=== PATIENT | female | born 1965 | race Caucasian/White ===

== ENCOUNTER → 2018-06-29 | Outpatient (CLI) | payer BC ==
[~2018-06-29] MED LIST: CAR350 PO; CEP500 PO; DIAZ-1 PO; DULO60CA51 PO; LEVO50TA80 PO; LUBI24CA8 PO; OXYC-528 PO; PER PO; PRAV20TA65 PO; PREG25 PO; TOBROD OD; TRA50 PO; TRAZ50 PO
--- NOTE | 2018-06-30 15:16 | RADIOLOGY IMAGING REPORT ---
FACILITY: [facility] - [place] PATIENT NAME: JESUS HENRIQUEZ : [id number] MR: [id number] V: [id number] EXAM DATE: ORDERING PHYSICIAN: BRINA AVILA TECHNOLOGIST: Allie Knight PROCEDURE:BILATERAL DIAGNOSTIC DIGITAL MAMMOGRAM WITH CAD ASSISTED INTERPRETATION & 3D TOMOSYNTHESIS COMPARISON:Prior mammograms 02/09/17, 12/28/13, 02/22/12. INDICATIONS:palpable breast lump approximate 4 o'clock position of the Left breast FINDINGS: The breasts are heterogeneously dense which can obscure small masses. The parenchymal pattern has remained stable allowing for difference in mammographic technique & patient positioning. Today's Left breast Ultrasound was performed along the inferior aspect of the Left breast from the 9-3 o'clock position. Numerous breast cysts were demonstrated. In the 3, 4, 5 & 8 o'clock position which will be discussed in Today's Left breast Ultrasound report. DIAGNOSTIC CATEGORY 2--BENIGN FINDING. RECOMMENDATIONS: ROUTINE MAMMOGRAM AND CLINICAL EVALUATION. IMPRESSION: BIRADS 2: Benign finding. There are numerous Left breast cysts which likely account for patient's palpable findings as described above. Dictated by: Piedad Santana M.D. on 06/29/2018 at 17:00 Transcribed by: OTILIA on 06/30/2018 at 8:35 Approved by: Piedad Santana M.D. on 06/30/2018 at 15:15 [facility]
--- NOTE | 2018-07-01 17:11 | RADIOLOGY IMAGING REPORT ---
FACILITY: [facility] PATIENT NAME: JESUS HENRIQUEZ : [id number] MR: [id number] V: [id number] EXAM DATE: ORDERING PHYSICIAN: BRINA AVILA TECHNOLOGIST: Elayne Garcia RDMS(ABD,OBGYN,BR),RVT PROCEDURE:US LEFT BREAST COMPLETE COMPARISON:None. INDICATIONS:PALPABLE LT BREAST LUMP APPROXIMATE 4 O'CLOCK POSITION FINDINGS: The inferior portion of the Left breast was imaged from the 9-3 o'clock position. There are numerous cysts in the Left breast. 1 in the 3 o'clock position measures 9mm in diameter. 1 in the 4 o'clock position measures 8mm in diameter and is 2cm from the nipple. 1 in the 5 o'clock position 2cm from the nipple measures 9mm in diameter. 1 in the 8 o'clock position 1cm from the nipple measures 4mm in diameter. DIAGNOSTIC CATEGORY 2--BENIGN FINDING. RECOMMENDATIONS: ROUTINE MAMMOGRAM AND CLINICAL EVALUATION. IMPRESSION: BIRADS 2: Benign finding. There are multiple Left breast cysts which likely account for patient's palpable findings. Dictated by: Piedad Santana M.D. on 06/29/2018 at 17:01 Transcribed by: OTILIA on 06/30/2018 at 8:41 Approved by: Piedad Santana M.D. on 07/01/2018 at 17:09 [facility]
== END ==
LOC: MAMO 08:29
PROVIDERS: ATTEND Surgery
DX: N63.0 Unspecified lump in unspecified breast (principal)
CPT/HCPCS: 77062; 77066